=== PATIENT | male | born 1950 | race Caucasian/White ===

== ENCOUNTER 2018-10-13 08:02 | Outpatient (RCR) | payer OTHER, SELFPAY | END 2018-11-16 11:19 | LOC: CAR 08:02 | PROVIDERS: Visit Provider Internal Medicine Cardiovascular Disease | DX: I50.22 Chronic systolic (congestive) heart failure (principal) | CPT/HCPCS: 93798 ==

== ENCOUNTER → 2018-11-27 15:53 | Outpatient (CLI) | payer OTHER, SELFPAY ==
--- NOTE | 2018-11-27 | DI.ECHO.S_ITS ---
[place] [facility]---------+ [facility] +---------+ : : [address] : [address] : : : : [id number] : : : : Phone: [phone]---------+ Echocardiogram Report + + :Name: KAREL MONACO Study Date: 11/27/2018 Height: 69 in : :[facility] Exam Location: [place] Weight: 275 lb : : Gender: Male BSA: 2.4 m2 : :: 1950 Age: 68 yrs BP: 118/80 mmHg: :Reason For Study: Cardiomyopathy : :Ordering Physician: Kvng Fraser : :Iveth Performed By: Ely Page : + + Interpretation Summary 1) Normal left ventricular size with low normal systolic function (EF 50-55%). 2) Normal right ventricular size and function. 3) There is mild to moderate aortic stenosis (valve area 1.3cm2, mean gradient 8.7mmHg, severity ratio 0.33). 4) The aortic root is borderline dilated at 4.1cm. 5) No prior Echo available for comparison. Procedure: A two-dimensional transthoracic echocardiogram with color flow and Doppler was performed. The study quality was technically adequate. There is no prior echocardiogram noted for this patient. The patient was in normal sinus rhythm during the exam. Left Ventricle: The left ventricle is normal in size. There is normal left ventricular wall thickness. The ejection fraction is estimated to be 50-55%. Diastolic parameters suggest probable normal left ventricular diastolic function and normal filling pressures. Right Ventricle: The right ventricle is normal in size and function. Atria: Both atria are normal in size. There is no Doppler evidence for an interatrial shunt. Mitral Valve: The mitral valve is normal in structure and function. There is mild mitral annular calcification. There is trace mitral regurgitation. Aortic Valve: The aortic valve is mildly calcified. Leaflet mobility is mildly reduced. The peak aortic velocity is 1.9 m/sec. The aortic valve mean gradient is 8.7 mmHg. The calculated aortic valve area is 1.3 cm2. There is mild to moderate aortic stenosis. No aortic regurgitation is present. Tricuspid Valve: The tricuspid valve is normal in structure and function. There is a trace or physiologic amount of tricuspid regurgitation. Pulmonary artery pressures cannot be estimated because of the lack of a measurable TR jet velocity. Pulmonic Valve: The pulmonic valve is not well seen, but is grossly normal. There is a trace or physiologic amount of pulmonic regurgitation. Great Vessels: The aortic root is borderline dilated. The ascending aorta is at the upper limits of normal in size. The pulmonary artery is not well visualized, but is probably normal size. The IVC is of normal diameter and collapses greater than 50% with a sniff. This suggests a low right atrial pressure of 3 mm Hg. Pericardium/ Pleura There is a trivial pericardial effusion noted. There is no pleural effusion. MMode/2D Measurements & Calculations LVIDd: 5.0 cm LVOT diam: 2.3 cm LVIDs: 3.5 cm Ao root diam: 4.1 cm FS: 30.3 % asc Aorta Diam: 3.6 cm EPSS: 0.96 cm IVSd: 1.00 cm LVPWd: 0.87 cm LV negrete. diameter/BSA (cm/m^2): 2.1 LV sys. diameter/BSA (cm/m^2): 1.5 LA A2 area: 18.9 cm2 RA long axis: 4.8 cm LA A4 area: 17.1 cm2 RA area: 15.6 cm2 LA length (vol): 4.9 cm RA vol: 43.2 ml LA vol: 56.1 ml RA : 18.2 ml/m2 LA vol index: 23.7 ml/m2 RVD1 (basal): 4.0 cm RVD2 (mid): 3.1 cm TAPSE: 1.9 cm Doppler Measurements & Calculations Ao V2 max: 190.0 cm/sec LVOT Max Matias: 61.7 cm/sec Ao V2 mean: 142.5 cm/sec LV V1 max P.5 mmHg Ao max P.4 mmHg LV V1 VTI: 11.2 cm Ao mean P.7 mmHg VINCENZO(I,D): 1.3 cm2 Ao V2 VTI: 33.7 cm VINCENZO(V,D): 1.3 cm2 sev ratio: 0.33 VINCENZO indexed to BSA (cm^2/m^2): 0.57 MV E max matias: 43.5 cm/sec TR max matias: 184.9 cm/sec MV A max matias: 85.7 cm/sec TR max P.7 mmHg MV E/A: 0.51 PA V2 max: 66.7 cm/sec Med Peak E' Matias: 5.9 cm/sec PA V2 mean: 51.9 cm/sec E/E' med: 7.4 PA mean P.1 mmHg Lat Peak E' Matias: 5.2 cm/sec PA Accel Time: 0.09 sec E/E' lat: 8.4 E/e' average: 7.9 MV dec time: 0.09 sec MV P1/2t: 26.3 msec MV P1/2t max matias: 45.2 cm/sec SV(LVOT): 45.3 ml MVA(P1/2t): 8.4 cm2 Reading Physician:09:48 AM
== END ==
PROVIDERS: Visit Provider Internal Medicine Cardiovascular Disease
DX: I42.9 Cardiomyopathy, unspecified (principal); I35.0 Nonrheumatic aortic (valve) stenosis; I42.8 Other cardiomyopathies
CPT/HCPCS: 93306

== ENCOUNTER → 2021-09-19 07:51 | Outpatient (CLI) | payer OTHER, SELFPAY ==
--- NOTE | 2021-09-19 | DI.ECHO.S_ITS ---
[place] +---------+ [facility] +---------+ : : [address] : [address] : : : : [id number] : : : : Phone: [phone] : : [phone]+ Echocardiogram Report + + :Name: KAREL MONACO Study Date: 09/19/2021 Height: 69 in : :[facility] ReadingLocation: Weight: 250 lb : : Gender: Male BSA: 2.3 m2 : :: 1950 Age: 71 yrs BP: 120/78 mmHg: :Reason For Study: Aortic valve stenosis : :Ordering Physician: Agusto Fraser : :Iveth Performed By: Claritza Orozco : :Referring: AGUSTO LAZARO : + + Interpretation Summary 1) Mildly increased left ventricular thickness (concentric) with normal size, wall motion, and systolic function (EF 55-60%). 2) Normal right ventricular size and function. 3) There is moderate aortic stenosis (valve area 1.2cm2, mean gradient 11.5mmHg, severity ratio 0.34). 4) No prior Echo available for comparison. Procedure: A two-dimensional transthoracic echocardiogram with color flow and Doppler was performed. Comparison is made with the echocardiogram of 08/10/2019. The study quality was technically adequate. The patient was in atrial fibrillation with heart rates between 80-90 bpm during the exam. Left Ventricle: The left ventricle is normal in size. Left ventricular wall thickness is mildly increased. The ejection fraction is estimated to be 55- 60%. Left ventricular systolic function appears normal without focal wall motion abnormalities. Right Ventricle: The right ventricle is normal in size and function. Atria: Both atria are normal in size. There is no Doppler evidence for an interatrial shunt. Mitral Valve: There is mild mitral annular calcification. There is trace mitral regurgitation. Aortic Valve: The aortic valve is mildly calcified. There is moderate aortic valve sclerosis. The peak aortic velocity is 1.9 m/sec. The aortic valve mean gradient is 11.5 mmHg. There is moderate aortic stenosis. There is trace aortic regurgitation. Tricuspid Valve: The tricuspid valve is normal in structure and function. There is trace tricuspid regurgitation. Pulmonic Valve: The pulmonic valve leaflets are thin and pliable; valve motion is normal. There is trace pulmonic regurgitation. Great Vessels: The aortic root is normal size. The ascending aorta is at the upper limits of normal in size. The IVC is of normal diameter and collapses greater than 50% with a sniff. This suggests a low right atrial pressure of 3 mm Hg. Pericardium/ Pleura There is no pericardial effusion. There is no pleural effusion. MMode/2D Measurements & Calculations LVIDd: 4.8 cm LVOT diam: 2.1 cm LVIDs: 3.4 cm Ao root diam: 3.8 cm FS: 28.3 % asc Aorta Diam: 3.7 cm IVSd: 1.3 cm Ao Arch Diam (Prox Trans): 3.0 cm LVPWd: 1.0 cm LV negrete. diameter/BSA (cm/m^2): 2.1 LV sys. diameter/BSA (cm/m^2): 1.5 LA A2 area: 20.3 cm2 RA long axis: 5.0 cm LA A4 area: 16.9 cm2 RA area: 15.8 cm2 LA length (vol): 5.1 cm RA vol: 42.2 ml LA vol: 57.5 ml RA : 18.6 ml/m2 LA vol index: 25.3 ml/m2 IVC diam: 1.4 cm RVD1 (basal): 3.6 cm RVD2 (mid): 3.4 cm TAPSE: 2.1 cm Doppler Measurements & Calculations Ao V2 max: 196.0 cm/sec LVOT Max Matias: 64.3 cm/sec Ao V2 mean: 142.1 cm/sec LV V1 max P.7 mmHg Ao max P.4 mmHg LV V1 VTI: 12.4 cm Ao mean P.5 mmHg VINCENZO(I,D): 1.2 cm2 Ao V2 VTI: 36.1 cm VINCENZO(V,D): 1.1 cm2 sev ratio: 0.34 VINCENZO indexed to BSA (cm^2/m^2): 0.53 MV E max matias: 81.2 cm/sec PA V2 max: 104.1 cm/sec MV A max matias: 1.8 cm/sec PA V2 mean: 70.0 cm/sec MV E/A: 44.4 PA mean P.2 mmHg Med Peak E' Matias: 5.9 cm/sec PA pr(Accel): 37.9 mmHg E/E' med: 13.8 Lat Peak E' Matias: 6.4 cm/sec E/E' lat: 12.7 E/e' average: 13.3 MV dec time: 0.14 sec SV(LVOT): 43.4 ml Reading Physician:02:16 PM
[2021-09-19 10:06] LABS: Add Manual Diff / Slide Review NO; Basophils Absolute Auto 100 /uL (0-100); Basophils Percent Auto 0.8 % (0-2); Eosinophils Absolute Auto 600 /uL (0-450); Eosinophils Percent Auto 6.7 % (2-4); Hematocrit 41.7 % (41-53); Hemoglobin 14.2 g/dL (13.5-17.5); Lymphocytes Absolute Auto 1800 /uL (1100-4500); Lymphocytes Percent Auto 19.5 % (25-40); Mean Corpuscular Hemoglobin 30.9 PG (26-34); Monocytes Absolute Auto 800 /uL (0-900); Monocytes Percent Auto 8.8 % (3-14); Neutrophils Absolute Auto 5800 /uL (1500-7000); Neutrophils Percent Auto 64.2 % (50-75); Platelet Count 173 X10^3/uL (150-400); Red Blood Cell Count 4.58 X10^6/uL (4.5-5.9); Red Cell Distribution Width 13.9 % (11.6-14.8); White Blood Cell Count 9.1 X10^3/uL (4.5-11.0)
[2021-09-19 10:13] LABS: Hemoglobin A1C% w Est Avg Glu 8.4 % (4.0-6.0)
[2021-09-19 10:25] LABS: BUN Creatinine Ratio 22.1 (6-22); Blood Urea Nitrogen 17 mg/dL (9-20); Carbon Dioxide 29 mmol/L (22-32); Chloride 107 mmol/L (98-107); Cholesterol 133 mg/dL (140-199); Estimated Glomerular Filt Rate > 60 mL/min (>60); Glucose 131 mg/dL (80-110); HDL Cholesterol 43 mg/dL (40-60); HEMOLYSIS < 15 (0-50); LDL Cholesterol Calculated 72 mg/dL (<100); Potassium 4.3 mmol/L (3.4-5.1); Sodium 143 mmol/L (137-145); Triglycerides 91 mg/dL (35-150)
== END ==
PROVIDERS: PCP Family Medicine; Referring Provider Internal Medicine Cardiovascular Disease; Visit Provider Internal Medicine Cardiovascular Disease
DX: E11.8 Type 2 diabetes mellitus with unspecified complications (principal); E78.5 Hyperlipidemia, unspecified; I35.0 Nonrheumatic aortic (valve) stenosis; I42.8 Other cardiomyopathies; Z79.4 Long term (current) use of insulin
CPT/HCPCS: 36415; 80048; 80061; 83036; 85025; 93306

== ENCOUNTER → 2023-02-17 08:00 | Outpatient (CLI) | payer OTHER, SELFPAY ==
--- NOTE | 2023-02-17 | DI.ECHO.S_ITS ---
[place] +---------+ [facility] +---------+ : : [address] : [address] : : : : [id number] : : : : Phone: [phone] : : [phone] +---------+ Echocardiogram Report + + :Name: KAREL MONACO Study Date: 02/17/2023 Height: 69 in : :[facility] ReadingLocation: Weight: 250 lb : : Gender: Male BSA: 2.3 m2 : :: 1950 Age: 72 yrs BP: 104/62 mmHg: :Reason For Study: Aortic Valve Stenosis : :Ordering Physician: GRUPO, : :AGUSTO Performed By: Marisol Hardwick : :Referring: AGUSTO LAZARO : + + Interpretation Summary 1) Mildly increased left ventricular thickness (concentric) with normal size and mildly reduced systolic function (EF 45-50%). 2) Normal right ventricular size with mildly reduced function. 3) There is moderate aortic stenosis (valve area 1.1cm2, mean gradient 9mmHg, severity ratio 0.32). 4) Compared to the Echo done 09/19/2021, LVEF has decreased from 55-60% to 45- 50% on this study. Procedure: A two-dimensional transthoracic echocardiogram with color flow and Doppler was performed. The study quality was technically adequate. Comparison is made with the echocardiogram of 09/19/2021. The patient was in normal sinus rhythm during the exam. The patient had occasional PVCs during the exam. Left Ventricle: The left ventricle is normal in size. There is mild concentric left ventricular hypertrophy. The ejection fraction is estimated to be 45-50%. There is mild global hypokinesis of the left ventricle. Diastolic parameters suggest a relaxation abnormality of the left ventricle, consistent with probable normal filling pressures. Right Ventricle: The right ventricle is normal size. Right ventricular systolic function is mildly reduced. Atria: The left atrial size is normal. Right atrial size is normal. There is no Doppler evidence for an interatrial shunt. Mitral Valve: The mitral valve leaflets appear mildly thickened, but open well. There is mild mitral annular calcification. There is no mitral valve stenosis. There is trace mitral regurgitation. Aortic Valve: The aortic valve is moderately calcified. There is moderate aortic stenosis. The peak aortic velocity is 2.02 m/sec. The aortic valve mean gradient is 9 mmHg. There is mild aortic regurgitation. Tricuspid Valve: The tricuspid valve is normal. There is no tricuspid stenosis. There is trace tricuspid regurgitation. The right ventricular systolic pressure is estimated to be at least 15 mmHg based on an estimated right atrial pressure of 3 mm Hg. Pulmonic Valve: The pulmonic valve leaflets are thin and pliable; valve motion is normal. There is no pulmonic valvular stenosis. There is trace pulmonic regurgitation. Great Vessels: The aortic root is normal size. The ascending aorta is at the upper limits of normal in size. The pulmonary artery is normal size. The IVC is of normal diameter and collapses greater than 50% with a sniff. This suggests a low right atrial pressure of 3 mm Hg. Pericardium/ Pleura There is no pericardial effusion. There is no pleural effusion. MMode/2D Measurements & Calculations LVIDd: 4.7 cm LVOT diam: 2.1 cm LVIDs: 3.6 cm Ao root diam: 3.6 cm FS: 23.4 % asc Aorta Diam: 3.8 cm EPSS: 1.3 cm IVSd: 1.3 cm LVPWd: 1.2 cm LV negrete. diameter/BSA (cm/m^2): 2.1 LV sys. diameter/BSA (cm/m^2): 1.6 LA A2 area: 21.0 cm2 RA long axis: 5.5 cm LA A4 area: 14.0 cm2 RA area: 18.5 cm2 LA length (vol): 5.5 cm RA vol: 52.7 ml LA vol: 45.5 ml RA : 23.2 ml/m2 LA vol index: 20.0 ml/m2 RVD1 (basal): 3.6 cm LVLs ap4: 6.6 cm LVLd ap2: 7.2 cm TAPSE_phl: 1.6 cm LVLs ap2: 6.4 cm Doppler Measurements & Calculations Ao V2 max: 200.0 cm/sec LVOT Max Matias: 68.4 cm/sec Ao V2 mean: 140.0 cm/sec LV V1 max P.9 mmHg Ao max P.0 mmHg LV V1 VTI: 14.3 cm Ao mean P.0 mmHg VINCENZO(I,D): 1.1 cm2 Ao V2 VTI: 45.0 cm VINCENZO(V,D): 1.2 cm2 sev ratio: 0.32 VINCENZO indexed to BSA (cm^2/m^2): 0.48 MV E max matias: 71.6 cm/sec TR max matias: 173.0 cm/sec MV A max matias: 90.5 cm/sec TR max P.0 mmHg MV E/A: 0.79 PA V2 max: 84.7 cm/sec Med Peak E' Matias: 3.0 cm/sec PA V2 mean: 56.5 cm/sec E/E' med: 23.8 PA mean P.0 mmHg Lat Peak E' Matias: 6.3 cm/sec PA pr(Accel): 42.1 mmHg E/E' lat: 11.3 E/e' average: 17.5 MV dec time: 0.24 sec MVA(VTI): 1.7 cm2 MV V2 mean: 52.6 cm/sec SV(LVOT): 49.4 ml MV mean P.2 mmHg MV V2 VTI: 29.7 cm AV VR_phl: 0.34 VINCENZO(VTI)/BSA_phl: 0.48 Reading Physician:12:04 PM
[2023-02-17 09:50] LABS: Add Manual Diff / Slide Review NO; Basophils Absolute Auto 100 /uL (0-100); Basophils Percent Auto 0.7 % (0-2); Eosinophils Absolute Auto 700 /uL (0-450); Eosinophils Percent Auto 6.9 % (2-4); Hematocrit 44.1 % (41-53); Hemoglobin 14.8 g/dL (13.5-17.5); Lymphocytes Absolute Auto 1900 /uL (1100-4500); Mean Corpuscular HGB Conc 33.5 % (30-36); Mean Corpuscular Hemoglobin 31.3 PG (26-34); Mean Corpuscular Volume 93.3 fL (80-100); Monocytes Absolute Auto 800 /uL (0-900); Monocytes Percent Auto 8.2 % (3-14); Neutrophils Absolute Auto 6100 /uL (1500-7000); Neutrophils Percent Auto 64.2 % (50-75); Platelet Count 167 X10^3/uL (150-400); Red Blood Cell Count 4.73 X10^6/uL (4.5-5.9); Red Cell Distribution Width 14.5 % (11.6-14.8); White Blood Cell Count 9.5 X10^3/uL (4.5-11.0)
[2023-02-17 10:08] LABS: BUN Creatinine Ratio 27.8 (6-22); Blood Urea Nitrogen 20 mg/dL (9-20); Calcium 9.3 mg/dL (8.4-10.2); Carbon Dioxide 27 mmol/L (22-32); Chloride 106 mmol/L (98-107); Cholesterol 129 mg/dL (140-199); Estimated Glomerular Filt Rate > 60 mL/min (>60); Glucose 99 mg/dL (80-110); HDL Cholesterol 37 mg/dL (40-60); HEMOLYSIS < 15 (0-50); LDL Cholesterol Calculated 73 mg/dL (<100); Potassium 4.4 mmol/L (3.4-5.1); Sodium 141 mmol/L (137-145); Triglycerides 97 mg/dL (35-150)
== END ==
PROVIDERS: PCP Family Medicine; Referring Provider Internal Medicine Cardiovascular Disease; Visit Provider Internal Medicine Cardiovascular Disease
DX: I34.81 Nonrheumatic mitral (valve) annulus calcification (principal); I35.2 Nonrheumatic aortic (valve) stenosis with insufficiency; I42.8 Other cardiomyopathies
CPT/HCPCS: 36415; 80048; 80061; 85025; 93306

== ENCOUNTER → 2024-06-28 08:24 | Outpatient (CLI) | payer OTHER, SELFPAY ==
--- NOTE | 2024-06-28 08:28 | DI.ECHO.S_ITS ---
[place] +---------+ Hospital : : [address] : [place] [address] : : [id number] : : Phone: [phone] Echocardiogram Report + + :Name: KAREL MONACO Study Date: 06/28/2024 Height: 69 in : :[facility] ReadingLocation: Weight: 253 lb: : Gender: Male BSA: 2.3 m2 : :: 1950 Age: 73 yrs : :Reason For Study: AORTIC VALVE STENOSIS : :Ordering Physician: GRUPO, : :AGUSTO Performed By: Aristides Martinez : :Referring: AGUSTO LAZARO : + + Interpretation Summary Technically difficult study due to patient habitus. 1) Mildly increased left ventricular thickness (concentric) with normal size and mildly reduced systolic function (EF 45-50%). 2) Normal right ventricular size with low normal function. 3) There is moderate aortic stenosis (valve area 1.1cm2, mean gradient 12Hg, severity ratio 0.33) 4) Compared to the Echo done 02/17/2023, no significant change. Procedure: A two-dimensional transthoracic echocardiogram with color flow and Doppler was performed. The study quality was technically difficult. A contrast injection of Definity was performed to improve assessment of LV function. Comparison is made with the echocardiogram of 02/17/2023. The patient was in normal sinus rhythm during the exam. Left Ventricle: The left ventricle is normal in size. Left ventricular wall thickness is mildly increased. There is no ventricular septal defect visualized. The ejection fraction is estimated to be 45-50%. There is mild global hypokinesis of the left ventricle. Diastolic parameters suggest a relaxation abnormality of the left ventricle, consistent with probable normal filling pressures. Right Ventricle: The right ventricle is normal size. Right ventricular systolic function is at the lower limits of normal. Atria: The left atrium is mildly dilated. Right atrial size is normal. There is no Doppler evidence for an atrial septal defect. Mitral Valve: There is mild mitral annular calcification. The mitral valve leaflets appear mildly thickened, but open well. There is trace mitral regurgitation. Aortic Valve: The aortic valve is moderately calcified. There is moderate aortic stenosis. The peak aortic velocity is 2.16 m/sec. The aortic valve mean gradient is 12 mmHg. There is trace aortic regurgitation. Tricuspid Valve: The tricuspid valve leaflets are thin and pliable. No tricuspid regurgitation. Pulmonic Valve: The pulmonic valve leaflets are thin and pliable; valve motion is normal. There is trace pulmonic regurgitation. Great Vessels: The aortic root is mildly dilated. The ascending aorta is mildly enlarged. The pulmonary artery is normal size. The inferior vena cava was not visualized. Pericardium/ Pleura There is no pericardial effusion. MMode/2D Measurements & Calculations LVIDd: 4.8 cm LVOT diam: 2.1 cm LVIDs: 3.4 cm Ao root diam: 4.0 cm FS: 29.4 % asc Aorta Diam: 3.7 cm EPSS: 1.2 cm Ao Arch Diam (Prox Trans): 2.2 cm IVSd: 1.2 cm LVPWd: 1.2 cm LV negrete. diameter/BSA (cm/m^2): 2.1 LV sys. diameter/BSA (cm/m^2): 1.5 LA A2 area: 25.3 cm2 RVD1 (basal): 3.9 cm LA A4 area: 22.8 cm2 RVD2 (mid): 3.6 cm LA length (vol): 6.3 cm LA vol: 77.8 ml LA vol index: 34.1 ml/m2 Doppler Measurements & Calculations Ao V2 max: 216.0 cm/sec LVOT Max Matias: 75.7 cm/sec Ao V2 mean: 161.3 cm/sec LV V1 max P.3 mmHg Ao max P.7 mmHg LV V1 VTI: 17.5 cm Ao mean P.9 mmHg VINCENZO(I,D): 1.1 cm2 Ao V2 VTI: 52.8 cm VINCENZO(V,D): 1.2 cm2 sev ratio: 0.33 VINCENZO indexed to BSA (cm^2/m^2): 0.48 MV E max matias: 59.1 cm/sec PA V2 max: 62.0 cm/sec MV A max matias: 77.5 cm/sec PA V2 mean: 42.4 cm/sec MV E/A: 0.76 PA mean P.81 mmHg Med Peak E' Matias: 4.1 cm/sec PA pr(Accel): 31.0 mmHg E/E' med: 14.4 Lat Peak E' Matias: 5.3 cm/sec E/E' lat: 11.1 E/e' average: 12.7 MV dec time: 0.25 sec SV(LVOT): 57.8 ml Reading Physician:04:20 PM
[2024-06-28 08:47] LABS: Hematocrit 42.1 % (41-53); Hemoglobin 14.1 g/dL (13.5-17.5); Mean Corpuscular HGB Conc 33.4 % (30-36); Mean Corpuscular Hemoglobin 31.7 PG (26-34); Mean Corpuscular Volume 94.8 fL (80-100); Platelet Count 186 X10^3/uL (150-400); Red Blood Cell Count 4.44 X10^6/uL (4.5-5.9); White Blood Cell Count 10.4 X10^3/uL (4.5-11.0)
[2024-06-28 09:12] LABS: BUN Creatinine Ratio 35.8 (6-22); Blood Urea Nitrogen 29 mg/dL (9-20); Calcium 9.4 mg/dL (8.4-10.2); Carbon Dioxide 25 mmol/L (22-32); Chloride 106 mmol/L (98-107); Cholesterol 150 mg/dL (140-199); Estimated Glomerular Filt Rate > 60 mL/min (>60); Glucose 233 mg/dL (80-110); HDL Cholesterol 42 mg/dL (40-60); HEMOLYSIS 29 (0-50); LDL Cholesterol Calculated 81 mg/dL (<100); Potassium 4.6 mmol/L (3.4-5.1); Sodium 140 mmol/L (137-145); Triglycerides 134 mg/dL (35-150)
== END ==
LOC: ECHO 08:26
PROVIDERS: PCP Family Medicine; Referring Provider Internal Medicine Cardiovascular Disease; Visit Provider Internal Medicine Cardiovascular Disease
DX: I34.81 Nonrheumatic mitral (valve) annulus calcification (principal); I35.0 Nonrheumatic aortic (valve) stenosis; I77.810 Thoracic aortic ectasia; I77.89 Other specified disorders of arteries and arterioles; I42.8 Other cardiomyopathies; E78.5 Hyperlipidemia, unspecified
CPT/HCPCS: 36415; 80048; 80061; 85027; 93306; C8929; Q9957